=== PATIENT | female | born 1990 | race Two or more races ===

== ENCOUNTER 2023-07-03 12:28 | Emergency (ER) | payer MEDICAID, OTHER ==
[~2023-07-03] VITALS: Ht 170.2 cm; Wt 103.2 kg
[2023-07-03 12:29] VITALS: BP 133/80; PULSE 80; RESP 18; O2SAT 98
== END 2023-07-03 17:28 | disposition left against medical advice (07) ==
LOC: ER 12:28
DX: J02.9 Acute pharyngitis, unspecified (principal); Z53.21 Procedure and treatment not carried out due to patient leaving prior to being seen by health care provider

== ENCOUNTER 2025-07-28 11:09 | Outpatient (CLI) | payer MEDICAID ==
[2025-07-28 12:17] LABS: Free T3 3.07 pg/mL (2.3-4.2)
[2025-07-28 12:18] LABS: Free T4 (Free Thyroxine) 0.85 ng/dL (0.89-1.76)
== END 2025-07-28 17:00 | disposition home or self-care (01) ==
LOC: LAB 11:09
PROVIDERS: ATTEND Obstetrics & Gynecology
DX: E28.2 Polycystic ovarian syndrome (principal)
CPT/HCPCS: 36415; 84436; 84439; 84443; 84481